=== PATIENT | female | born 2000 | race Caucasian/White ===

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

== ENCOUNTER 2024-12-13 13:10 | Outpatient (CLI) | payer OTHER | END 2024-12-13 13:11 | disposition home or self-care (01) | LOC: ULT 13:10 | PROVIDERS: ATTEND Physician Assistant Medical | DX: K59.00 Constipation, unspecified (principal); R11.2 Nausea with vomiting, unspecified; R10.84 Generalized abdominal pain; K82.4 Cholesterolosis of gallbladder | CPT/HCPCS: 76700 ==